=== PATIENT | female | born 1955 | race Caucasian/White ===

== ENCOUNTER 2017-03-21 16:26 | Inpatient (IN) | payer MEDICARE, MEDICAID ==
[2017-03-21] MEDS ORDERED: NS 0.9% 1000 ML* 1,000 ML IV ONE (17:04)
[2017-03-21] MEDS ORDERED: Ondansetron INJ* 2 MG/ML VIAL IV ONE (17:04)
[2017-03-21] MEDS ORDERED: Morphine INJ* 4 MG/ML 1 ML SYRINGE IV ONE (17:04)
[2017-03-21 17:13] LABS: Add Diff/Slide Review? Slide Review Added; Comments Flag Yes; Hematocrit 39 % (35-47); Mean Corpuscular HGB Conc 33 g/dl (31-36); Mean Corpuscular Hemoglobin 30 pg (27-31); Mean Corpuscular Volume 91 fL (80-97); Mean Platelet Volume 8 um3 (7.4-10.4); Red Cell Distribution Width 15 % (10.5-15); White Blood Count 8.1 10^3/ul (3.5-10.8)
[2017-03-21 17:28] LABS: ALT 37 U/L (7-52); Albumin 3.9 g/dL (3.2-5.2); Alkaline Phosphatase 140 U/L (34-104); BUN/Creatinine Ratio 12.4 (8-20); Blood Urea Nitrogen 11 mg/dL (6-24); C Reactive Protein 7.21 mg/L (< 5.00); CO2 Carbon Dioxide 31 mmol/L (22-32); Calcium 9.5 mg/dL (8.6-10.3); Chloride 95 mmol/L (101-111); EGFR African American 82.4 (>60); EGFR Non-African American 64.1 (>60); Globulin 3.6 g/dL (2-4); Glucose 176 mg/dL (70-100); Lipase 26 U/L (11.0-82.0); Sodium 135 mmol/L (133-145); Total Protein 7.5 g/dL (6.4-8.9)
[2017-03-21 17:44] LABS: Anion Gap 9 mmol/L (2-11)
[2017-03-21 17:49] LABS: Urine Bacteria 1+ (Absent); Urine Bilirubin Negative (Negative); Urine Glucose Negative (Negative); Urine Nitrite Negative (Negative)
[2017-03-21] MEDS ORDERED: Iodixanol* (CONTRAST) 320 MG/ML 100 ML SDV IV ONE (17:49)
--- NOTE | 2017-03-21 18:53 | RAD ---
Indication: Abdominal pain. Contrast: Administered 150.2 ml of VISIPAQUE 320 mg/ml CT of the abdomen and pelvis was performed after oral and IV contrast administration. Coronal and sagittal reconstructed images were obtained. Lung bases demonstrate no pleural fluid, nodules or masses. Heart is normal size without evidence of pericardial effusion. Liver is normal in size. No focal lesions or intrahepatic ductal dilatation is noted. There is a hiatal hernia noted. The gallbladder demonstrates no gallstones, pericholecystic fluid or wall thickening. Common duct is not dilated. The pancreas demonstrates no mass or pancreatic duct dilatation. The spleen is normal in size. No adrenal masses are noted. The kidneys demonstrate symmetric nephrograms. The retroperitoneal lymphadenopathy is noted. Moderately dilated loops of bowel noted. There are collapsed loops of distal bowel suggestive of small bowel obstruction. This may be due to adhesions. No gross hernia is noted. Periumbilical scarring is noted. CT of the pelvis demonstrates no retroperitoneal or pelvic lymphadenopathy. Diverticulosis without evidence of diverticulitis is noted. Urinary bladder is grossly unremarkable. IMPRESSION: Moderately dilated loops of small bowel with a zone of transition in the mid abdomen probably in the lower abdomen with collapsed distal loops of small bowel in the right lower quadrant. There is stool throughout the colon. Findings are consistent with small bowel obstruction. Hiatal hernia is noted. Postoperative changes of the lumbar spine are noted.
[2017-03-21] MEDS ORDERED: HYDROmorphone* 1 MG/ML 1 ML SYR IV SLOW PU ONE (19:19)
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
[2017-03-21] MEDS ORDERED: Ondansetron INJ* 2 MG/ML VIAL IV PRN (20:55)
[2017-03-21] MEDS ORDERED: Acetaminophen TAB* 325 MG PO PRN (20:55)
[2017-03-21] MEDS ORDERED: Dextrose 50% Syringe 50 ML* 25 GM/50 ML SYRINGE IV PUSH PRN (21:02)
[2017-03-21] MEDS ORDERED: Docusate CAP* 100 MG PO PRN (21:08)
[2017-03-21] MEDS ORDERED: oxyCODONE TAB* 5 MG TAB PO PRN (21:08)
[2017-03-21] MEDS ORDERED: NS 0.9% 1000 ML* 1,000 ML IV SCH (21:15)
[2017-03-21] MEDS: Heparin VIAL(*) 5000 UNITS/ML VIAL (FIVE THOUSAND) SUBCUT SCH (22:27)
[2017-03-21] MEDS: Insulin LISPRO* 1 UNITS UNIT SUBCUT SCH (23:49)
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
[2017-03-22] MEDS: HYDROmorphone* 1 MG/ML 1 ML SYR IV SLOW PU PRN ×4 (02:26→16:55)
[2017-03-22] MEDS: Heparin VIAL(*) 5000 UNITS/ML VIAL (FIVE THOUSAND) SUBCUT SCH ×3 (05:47→21:51)
[2017-03-22] MEDS: Insulin LISPRO* 1 UNITS UNIT SUBCUT SCH ×3 (06:01→18:40)
[2017-03-22] MEDS ORDERED: NS 0.9% 250 ML* 250 ML IV ONE (06:37)
[2017-03-22] MEDS: Dicyclomine CAP* 10 MG PO SCH ×4 (09:19→20:45)
[2017-03-22] MEDS: Gabapentin CAP(*) 300 MG PO SCH ×3 (09:19→20:45)
[2017-03-22] MEDS: Omeprazole CAP* 20 MG PO SCH (09:19)
[2017-03-22] MEDS: buPROPion SR TAB.SR* 150 MG PO SCH ×2 (09:20→20:45)
[2017-03-22] MEDS: Senna TAB PO SCH (09:20)
[2017-03-22] MEDS: Venlafaxine EXT RELEASE CAP* 75 MG PO SCH (09:20)
--- NOTE | 2017-03-22 09:39 | CONSULT ---
Consult Consult: Surgical consult dictated. Impression/Plan: Recurrent SBO, keep NPO for now. Abdominal pain has improved overnight, no further nausea or vomiting. Hold off any NG tube placement at this time. PT eval for ambulation Abdominal xray in AM for F/U SBO No signs of acute abdomen or immediate surgical concerns. Thank you for this consultation.
--- NOTE | 2017-03-22 13:00 | PN ---
Subjective Date of Service: 03/22/17 Interval History: Patient seen this afternoon. Reports improvement in her symptoms. No further N/V , abdominal pain improving. Says she passed a small amount of gas this morning. Thinks she has had >30 SBOs in the past. 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 Family History: Unchanged from Admission Social History: Unchanged from Admission Past Medical History: Unchanged from Admission Objective Active Medications: Acetaminophen (Tylenol Tab*) 650 mg PO Q4H PRN Bupropion HCl (Wellbutrin Sr Tab*) 150 mg PO BID EARL Dextrose (D50w Syringe 50 Ml*) 12.5 gm IV PUSH .FOR FS < 60 - SS PRN Dicyclomine HCl (Bentyl Cap*) 10 mg PO QID EARL Docusate Sodium (Colace Cap*) 100 mg PO BID PRN Gabapentin (Neurontin Cap(*)) 300 mg PO TID EARL Heparin Sodium (Porcine) (Heparin Vial(*)) 5,000 units SUBCUT Q8HR [facility] Hydromorphone HCl (Dilaudid Iv*) 1 mg IV SLOW PU Q4H PRN Sodium Chloride (Ns 0.9% 1000 Ml*) 1,000 mls @ 150 mls/hr IV PER RATE [facility] Insulin Human Lispro (Humalog*) 0 units SUBCUT Q6HR EARL Omeprazole (Prilosec Cap*) 20 mg PO DAILY@0730 [facility] Ondansetron HCl (Zofran Inj*) 4 mg IV Q4H PRN Oxycodone HCl (Roxycodone Tab*) 5 mg PO Q4H PRN Senna (Senokot Tab*) 1 tab PO DAILY [facility] Venlafaxine HCl (Effexor Xr Cap*) 225 mg PO DAILY [facility] Vital Signs 03/21/17 03/21/17 03/21/17 21:59 22:00 23:26 Temperature 98.1 F 98.1 F Pulse Rate 78 81 Respiratory 16 16 16 Rate Blood Pressure 134/63 103/47 (mmHg) O2 Sat by Pulse 98 98 Oximetry 03/22/17 03/22/17 03/22/17 02:26 03:26 06:28 Temperature 97.8 F Pulse Rate 80 Respiratory 16 16 16 Rate Blood Pressure 98/54 (mmHg) O2 Sat by Pulse 97 Oximetry 03/22/17 03/22/17 03/22/17 07:28 08:00 09:19 Temperature 97.9 F Pulse Rate 73 Respiratory 18 18 18 Rate Blood Pressure 101/38 (mmHg) O2 Sat by Pulse 93 Oximetry Oxygen Devices in Use Now: None Appearance: Middle-aged, obese, F, laying in bed in NAD Eyes: No Scleral Icterus Ears/Nose/Mouth/Throat: - - Dry MM Neck: NL Appearance and Movements; NL JVP Respiratory: Symmetrical Chest Expansion and Respiratory Effort, Clear to Auscultation Cardiovascular: NL Sounds; No Murmurs; No JVD, RRR Abdominal: - - Obese, soft, non-distended, mild TTP diffusely, BS hypoactive Lymphatic: No Cervical Adenopathy Extremities: No Edema Skin: No Rash or Ulcers Neurological: Alert and Oriented x 3 Result Diagrams: 03/21/17 17:03 03/21/17 18:35 Additional Lab and Data: Lab Results 03/21/17 03/21/17 03/21/17 Range/Units 17:03 17:03 17:03 WBC 8.1 (3.5-10.8) 10^3/ul RBC 4.30 (4.0-5.4) 10^6/ul Hgb 13.0 (12.0-16.0) g/dl Hct 39 (35-47) % MCV 91 (80-97) fL MCH 30 (27-31) pg MCHC 33 (31-36) g/dl RDW 15 (10.5-15) % Plt Count 303 (150-450) 10^3/ul MPV 8 (7.4-10.4) um3 Neut % (Auto) 72.5 (38-83) % Lymph % (Auto) 18.4 L (25-47) % [place] % (Auto) 5.8 (1-9) % Eos % (Auto) 1.6 (0-6) % Baso % (Auto) 1.7 (0-2) % Absolute Neuts (auto) 5.9 (1.5-7.7) 10^3/ul Absolute Lymphs (auto) 1.5 (1.0-4.8) 10^3/ul Absolute Monos (auto) 0.5 (0-0.8) 10^3/ul Absolute Eos (auto) 0.1 (0-0.6) 10^3/ul Absolute Basos (auto) 0.1 (0-0.2) 10^3/ul Absolute Nucleated RBC 0 10^3/ul Nucleated RBC % 0 Sodium 135 (133-145) mmol/L Potassium TNP Chloride 95 L (101-111) mmol/L Carbon Dioxide 31 (22-32) mmol/L Anion Gap 9 (2-11) mmol/L BUN 11 (6-24) mg/dL Creatinine 0.89 (0.51-0.95) mg/dL Est GFR ( Amer) 82.4 (>60) Est GFR (Non-Af Amer) 64.1 (>60) BUN/Creatinine Ratio 12.4 (8-20) Glucose 176 H (70-100) mg/dL Lactic Acid 1.8 (0.5-2.0) mmol/L Calcium 9.5 (8.6-10.3) mg/dL Total Bilirubin 0.70 (0.2-1.0) mg/dL AST TNP ALT 37 (7-52) U/L Alkaline Phosphatase 140 H (34-104) U/L C-Reactive Protein 7.21 H (< 5.00) mg/L Total Protein 7.5 (6.4-8.9) g/dL Albumin 3.9 (3.2-5.2) g/dL Globulin 3.6 (2-4) g/dL Albumin/Globulin Ratio 1.1 (1-3) Lipase 26 (11.0-82.0) U/L Urine Color Urine Appearance Urine pH (5-9) Ur Specific [place] (1.010-1.030) Urine Protein (Negative) Urine Ketones (Negative) Urine Blood (Negative) Urine Nitrate (Negative) Urine Bilirubin (Negative) Urine Urobilinogen (Negative) Ur Leukocyte Esterase (Negative) Urine WBC (Auto) (Absent) Urine RBC (Auto) (Absent) Ur Squamous Epith Cells (Absent) Urine Bacteria (Absent) Urine Glucose (Negative) 03/21/17 03/21/17 Range/Units 17:35 18:35 WBC (3.5-10.8) 10^3/ul RBC (4.0-5.4) 10^6/ul Hgb (12.0-16.0) g/dl Hct (35-47) % MCV (80-97) fL MCH (27-31) pg MCHC (31-36) g/dl RDW (10.5-15) % Plt Count (150-450) 10^3/ul MPV (7.4-10.4) um3 Neut % (Auto) (38-83) % Lymph % (Auto) (25-47) % [place] % (Auto) (1-9) % Eos % (Auto) (0-6) % Baso % (Auto) (0-2) % Absolute Neuts (auto) (1.5-7.7) 10^3/ul Absolute Lymphs (auto) (1.0-4.8) 10^3/ul Absolute Monos (auto) (0-0.8) 10^3/ul Absolute Eos (auto) (0-0.6) 10^3/ul Absolute Basos (auto) (0-0.2) 10^3/ul Absolute Nucleated RBC 10^3/ul Nucleated RBC % Sodium (133-145) mmol/L Potassium 4.2 Chloride (101-111) mmol/L Carbon Dioxide (22-32) mmol/L Anion Gap (2-11) mmol/L BUN (6-24) mg/dL Creatinine (0.51-0.95) mg/dL Est GFR ( Amer) (>60) Est GFR (Non-Af Amer) (>60) BUN/Creatinine Ratio (8-20) Glucose (70-100) mg/dL Lactic Acid (0.5-2.0) mmol/L Calcium (8.6-10.3) mg/dL Total Bilirubin (0.2-1.0) mg/dL AST 44 H ALT (7-52) U/L Alkaline Phosphatase (34-104) U/L C-Reactive Protein (< 5.00) mg/L Total Protein (6.4-8.9) g/dL Albumin (3.2-5.2) g/dL Globulin (2-4) g/dL Albumin/Globulin Ratio (1-3) Lipase (11.0-82.0) U/L Urine Color Yellow Urine Appearance Cloudy Urine pH 8.0 (5-9) Ur Specific [place] 1.016 (1.010-1.030) Urine Protein 1+(30 mg/dl) H (Negative) Urine Ketones Trace H (Negative) Urine Blood 1+ H (Negative) Urine Nitrate Negative (Negative) Urine Bilirubin Negative (Negative) Urine Urobilinogen Positive H (Negative) Ur Leukocyte Esterase 2+ H (Negative) Urine WBC (Auto) 3+(>20/hpf) H (Absent) Urine RBC (Auto) 1+(3-5/hpf) H (Absent) Ur Squamous Epith Cells Present H (Absent) Urine Bacteria 1+ H (Absent) Urine Glucose Negative (Negative) Assess/Plan/Problems-Billing Assessment: SBO in a 62 yo F with hx of HTN, HLD, DM, depression, multiple bowel surgeries - Patient Problems (1) SBO (small bowel obstruction) Current Visit: Yes Comment: Appreciate surgery assistance. Continue NPO, IVF, analgesia, anti-emetics (2) Diabetes Current Visit: Yes Comment: Continue ISS (3) GERD (gastroesophageal reflux disease) Current Visit: Yes Comment: Continue PPI (4) DVT prophylaxis Current Visit: Yes Comment: HSQ Status and Disposition: Inpatient for SBO
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
[2017-03-22] MEDS: NS 0.9% 1000 ML* 1,000 ML IV SCH ×2 (14:22→20:46)
[2017-03-23] MEDS: Insulin LISPRO* 1 UNITS UNIT SUBCUT SCH ×4 (00:18→16:50)
[2017-03-23] MEDS: HYDROmorphone* 1 MG/ML 1 ML SYR IV SLOW PU PRN ×2 (02:26→09:02)
[2017-03-23] MEDS: NS 0.9% 1000 ML* 1,000 ML IV SCH (04:35)
[2017-03-23] MEDS: Heparin VIAL(*) 5000 UNITS/ML VIAL (FIVE THOUSAND) SUBCUT SCH ×3 (06:04→22:15)
[2017-03-23 07:48] LABS: BUN/Creatinine Ratio 9.7 (8-20); EGFR African American 105.2 (>60); EGFR Non-African American 81.8 (>60); Potassium 3.7 mmol/L (3.5-5.0)
--- NOTE | 2017-03-23 08:45 | RAD ---
Indication: Small bowel obstruction Flat and upright views of the abdomen demonstrates no free air. No dilated loops of bowel are noted. Contrast is noted in the colon. IMPRESSION: No free air is noted. There is now contrast in the colon.
[2017-03-23] MEDS: Gabapentin CAP(*) 300 MG PO SCH ×3 (09:48→20:43)
[2017-03-23] MEDS: Dicyclomine CAP* 10 MG PO SCH ×4 (09:49→20:44)
[2017-03-23] MEDS: Omeprazole CAP* 20 MG PO SCH (09:49)
[2017-03-23] MEDS: buPROPion SR TAB.SR* 150 MG PO SCH ×2 (09:49→20:43)
[2017-03-23] MEDS: Venlafaxine EXT RELEASE CAP* 75 MG PO SCH (09:49)
[2017-03-23] MEDS: Senna TAB PO SCH (09:49)
--- NOTE | 2017-03-23 11:38 | PN ---
Progress Note - Progress Note Date of Service: 03/23/17 SOAP: Subjective: Reports feeling much better today. Has been passing lots of flatus, no BMs yet. Denies any abdominal pain, nausea or vomiting. Tolerating clear liquid this AM. Objective: Awake and alert, comfortable in bed, in NAD VSS, afebrile Lungs CTA bilat. Heart RRR, no murmurs Abdomen soft, NT, ND. Old incisions from prior laparotomy well healed. No hernias or masses noted. No guarding or rigidity. Bowel sounds active in all quadrants. Abd xray with resolving SBO, conrast in colon Assessment: A 62 y/o female with resolving SBO Plan: Continue conservative management, advance diet slowly as tolerated Await bowel function No surgical indications at this time Hopefully home tomorrow if she continues to improve
--- NOTE | 2017-03-23 15:24 | PN ---
Subjective Date of Service: 03/23/17 Interval History: HOSPITALIST PROGRESS NOTE Patient seen and examined at bedside. She feels better this AM. No BM, but passing flatus, denies nausea and feels hungry. Family History: Unchanged from Admission Social History: Unchanged from Admission Past Medical History: Unchanged from Admission Objective Active Medications: Acetaminophen (Tylenol Tab*) 650 mg PO Q4H PRN PRN Reason: FEVER/PAIN Bupropion HCl (Wellbutrin Sr Tab*) 150 mg PO BID [facility] Last Admin: 03/23/17 09:49 Dose: 150 mg Dextrose (D50w Syringe 50 Ml*) 12.5 gm IV PUSH .FOR FS < 60 - SS PRN PRN Reason: FS < 60 Dicyclomine HCl (Bentyl Cap*) 10 mg PO QID [facility] Last Admin: 03/23/17 13:47 Dose: 10 mg Docusate Sodium (Colace Cap*) 100 mg PO BID PRN PRN Reason: CONSTIPATION Gabapentin (Neurontin Cap(*)) 300 mg PO TID [facility] Last Admin: 03/23/17 13:47 Dose: 300 mg Heparin Sodium (Porcine) (Heparin Vial(*)) 5,000 units SUBCUT Q8HR [facility] Last Admin: 03/23/17 13:48 Dose: 5,000 units Hydromorphone HCl (Dilaudid Iv*) 1 mg IV SLOW PU Q4H PRN PRN Reason: PAIN Last Admin: 03/23/17 09:02 Dose: 1 mg Sodium Chloride (Ns 0.9% 1000 Ml*) 1,000 mls @ 150 mls/hr IV PER RATE [facility] Last Admin: 03/23/17 04:35 Dose: 150 mls/hr Insulin Human Lispro (Humalog*) 0 units SUBCUT Q6HR [facility] PRN Reason: Protocol Last Admin: 03/23/17 12:29 Dose: 3 units Omeprazole (Prilosec Cap*) 20 mg PO DAILY@0730 [facility] PRN Reason: Protocol Last Admin: 03/23/17 09:49 Dose: 20 mg Ondansetron HCl (Zofran Inj*) 4 mg IV Q4H PRN PRN Reason: NAUSEA Oxycodone HCl (Roxycodone Tab*) 5 mg PO Q4H PRN PRN Reason: PAIN Senna (Senokot Tab*) 1 tab PO DAILY [facility] Last Admin: 03/23/17 09:49 Dose: 1 tab Venlafaxine HCl (Effexor Xr Cap*) 225 mg PO DAILY [facility] PRN Reason: Protocol Last Admin: 03/23/17 09:49 Dose: 225 mg Vital Signs 03/23/17 03/23/17 03/23/17 09:49 10:02 11:27 Temperature 98.0 F Pulse Rate 77 Respiratory 18 18 12 Rate Blood Pressure 111/42 (mmHg) O2 Sat by Pulse 93 Oximetry Oxygen Devices in Use Now: None Appearance: Morbid obese lady lying in bed in NAD. Eyes: No Scleral Icterus Ears/Nose/Mouth/Throat: Mucous Membranes Moist Neck: Trachea Midline Respiratory: Symmetrical Chest Expansion and Respiratory Effort, Clear to Auscultation Cardiovascular: RRR - Normal S1 and S2 Abdominal: - - Obese, soft, mild diffuse tenderness, NG, NR, well healed midline scar, BS+ but still sluggish Neurological: Alert and Oriented x 3, NL Muscle Strength and Tone Lines/Tubes/Other Access: Clean, Dry and Intact Peripheral IV Result Diagrams: 03/21/17 17:03 03/23/17 04:37 Assess/Plan/Problems-Billing Assessment: Mrs. Robertson is a 62 yo F with PMH of HTN, HLD, DM, depression, multiple abdominal surgeries (for colon and ovarian CA, appendectomy), multiple prior episodes of SBO, who presented to ED with c/o abdominal pain, found to have SBO. - Patient Problems (1) SBO (small bowel obstruction) Comment: - Appreciate surgery input. - Abdome xray shows non specific bowel gas pattern and she has had symptomatic improvement. - Start clear liquid diet and monitor. (2) Diabetes Comment: - Monitor FS and continue Lispro SS. - Check A1c. (3) Depression Comment: - Continue Bupropion and Venlafaxine. (4) GERD (gastroesophageal reflux disease) Comment: - Continue Omeprazole. (5) DVT prophylaxis Comment: - SQ heparin. (6) Full code status Status and Disposition: Inpatient for SBO
[2017-03-23] MEDS ORDERED: NS 0.9% 1000 ML* 1,000 ML IV SCH (15:34)
[2017-03-23] MEDS ORDERED: Ondansetron ODT TAB* 4 MG SL PRN (17:05)
[2017-03-24] MEDS: Heparin VIAL(*) 5000 UNITS/ML VIAL (FIVE THOUSAND) SUBCUT SCH (05:44)
[2017-03-24] MEDS: Insulin LISPRO* 1 UNITS UNIT SUBCUT SCH ×2 (07:38→12:21)
[2017-03-24] MEDS: Omeprazole CAP* 20 MG PO SCH (07:44)
[2017-03-24] MEDS: Senna TAB PO SCH (07:45)
[2017-03-24] MEDS: Venlafaxine EXT RELEASE CAP* 75 MG PO SCH (07:45)
[2017-03-24] MEDS: Dicyclomine CAP* 10 MG PO SCH (07:45)
[2017-03-24] MEDS: Gabapentin CAP(*) 300 MG PO SCH (07:45)
[2017-03-24] MEDS: buPROPion SR TAB.SR* 150 MG PO SCH (07:45)
[2017-03-24 08:09] VITALS: BP 138/52
--- NOTE | 2017-03-24 09:51 | PN ---
Progress Note - Progress Note Date of Service: 03/24/17 SOAP: Subjective: small bowel obstruction feels better,ate solid breakfast,no nausea;passing flatus and loose stools ;no pain [] Objective:abd:obese,+bs,soft,nondistended,nontender throughout Vital Signs Temp 98.0 F 03/24/17 08:07 Pulse 67 03/24/17 03:25 Resp 18 03/24/17 09:45 BP 138/52 03/24/17 08:07 Pulse Ox 99 03/24/17 08:07 Intake & Output 03/23/17 03/24/17 03/24/17 18:59 06:59 18:59 Intake Total 2773 1290 Output Total 500 200 0 Balance 2273 1090 0 Intake: IVPB 403 NS (0.9%) 403 Oral 2370 1290 Output: Urine 500 200 0 Other: Date of Last Bowel 0 Movement # Bowel Movements 1 Estimated Stool Amount Large [] Assessment:SBO resolved [] Plan:disposition per Hospitalist service,pt states she is returning to [facility] []
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
== END 2017-03-24 13:00 | DRG 389 ==
LOC: ED 16:26 → SSU 21:16
PROVIDERS: ADMIT Internal Medicine; ATTEND Internal Medicine
DX: K56.60 Unspecified intestinal obstruction (principal); Z68.43 Body mass index [BMI] 50.0-59.9, adult; E11.40 Type 2 diabetes mellitus with diabetic neuropathy, unspecified; I10 Essential (primary) hypertension; Z88.0 Allergy status to penicillin; E66.01 Morbid (severe) obesity due to excess calories; Z88.8 Allergy status to other drugs, medicaments and biological substances; Z91.040 Latex allergy status; Z85.038 Personal history of other malignant neoplasm of large intestine; Z85.43 Personal history of malignant neoplasm of ovary; Z90.710 Acquired absence of both cervix and uterus; Z82.49 Family history of ischemic heart disease and other diseases of the circulatory system; Z83.3 Family history of diabetes mellitus; Z80.9 Family history of malignant neoplasm, unspecified; E78.5 Hyperlipidemia, unspecified; F32.9 Major depressive disorder, single episode, unspecified; K44.9 Diaphragmatic hernia without obstruction or gangrene; R11.2 Nausea with vomiting, unspecified; R20.8 Other disturbances of skin sensation; J45.909 Unspecified asthma, uncomplicated; K21.9 Gastro-esophageal reflux disease without esophagitis
CPT/HCPCS: 36415; 74020; 74177; 80048; 80053; 81003; 81015; 83036; 83605; 83690; 85025; 86140; 87086; 93005; A9270-GY; J1170; J1644; J2270; J2405; Q9967